=== PATIENT | male | born 1955 | race Caucasian/White ===

== ENCOUNTER 2018-08-26 14:12 | Emergency (ER) | payer OTHER ==
[2018-08-26 15:02] LABS: #Basophils 0.1 thou/uL (0.0-0.2); #Eosinphils 0.1 thou/uL (0.0-0.7); #Monocytes 0.9 thou/uL (0.11-0.59); #Neutrophils 8.8 thou/uL (1.40-6.50); %Basophils 0.9 % (0.0-1.0); %Eosinophils 0.5 % (0.0-10.0); %Lymphocytes 9.6 % (21.0-51.0); %Monocytes 8.2 % (0.0-10.0); %Neutrophils 80.9 % (42.0-75.0); Hemoglobin 13.6 g/dL (14.0-18.0); Mean Corpuscular HGB CONC 33.4 g/dL (32.0-36.0); Mean Corpuscular Hemoglobin 29.5 pg (27.0-31.0); Mean Corpuscular Volume 88.2 fL (78.0-98.0); Mean Platelet Volume 7.2 fL (7.4-10.4); Platelet Count 247 thou/uL (130-400); RBC Distribution Width 12.1 % (11.5-14.5); Red Blood Cell (RBC) Count 4.63 mill/uL (4.70-6.10); White Blood Cell (WBC) Count 10.9 thou/uL (4.8-10.8)
[2018-08-26] MEDS ORDERED: Ketorolac Tromethamine 30 MG/ML VIAL ONE (15:10)
[2018-08-26] MEDS ORDERED: Morphine 4 MG/ML VIAL ONE (15:10)
[2018-08-26] MEDS ORDERED: Ondansetron PF 4 MG/2 ML Vial ONE (15:10)
[2018-08-26 15:17] LABS: ALT (SGPT) 20 U/L (8-55); AST (SGOT) 22 U/L (5-34); Albumin 4.4 g/dL (3.4-4.8); Alkaline Phosphatase 51 U/L (40-150); Anion Gap 15 mmol/L (10-20); BUN (Urea Nitrogen) 22 mg/dL (8.4-25.7); Bilirubin, Total 0.4 mg/dL (0.2-1.2); Calc. Creatinine Clearance 0 mL/min (70-130); Calcium 9.2 mg/dL (7.8-10.44); Carbon Dioxide 25 mmol/L (23-31); Chloride 103 mmol/L (98-107); Estimated GFR-MDRD 50; Globulin 3.2 g/dL (2.4-3.5); Glucose 111 mg/dL (80-115); Lipase 19 U/L (8-78); Potassium 4.3 mmol/L (3.5-5.1); Protein, Total 7.6 g/dL (5.8-8.1); Sodium 139 mmol/L (136-145)
--- NOTE | 2018-08-26 15:24 | CT ---
Noncontrast enhanced images of abdomen and pelvis. HISTORY: Patient complaining of left-sided flank pain. Noncontrast enhanced CT images of the abdomen pelvis demonstrate the lung bases to be unremarkable. No evidence of free intraperitoneal air seen. The liver, spleen, gallbladder and pancreas are unremarkable. Adrenal glands unremarkable. The right kidneys unremarkable. The left kidney demonstrates a moderate degree of hydroureteronephrosis with surrounding fat strandin g. The left ureter is dilated along its course. There is an approximately 3.5 mm distal left ureterovesicular junction calculus. No dilated loops of bowel seen. There is a prosthetic penile implant with reservoir and tubing in place. IMPRESSION: obstructing distal left ureteral calculus with proximal left-sided hydronephrosis. Transcribed Date/Time: 08/26/2018 3:29 PM
[2018-08-26] MEDS ORDERED: Fentanyl 100 MCG/2 ML VIAL ONE (15:43)
[2018-08-26 16:18] LABS: Bilirubin Small (Negative); Blood, Urine Large (Negative); Glucose, Urine (Dipstick) Negative (Negative); Leukocyte Negative (Negative); Nitrite Negative (Negative); Protein, Urine (Dipstick) 30 mg/dL (Neg-Trace); Urobilinogen 0.2 mg/dL (0.2-1.0); pH, Urine 5.5 (5.0-9.0)
[2018-08-26 16:19] LABS: Clarity Hazy (Clear); Specific Gravity, Urine 1.022 (1.002-1.036)
[2018-08-26 16:24] LABS: Bacteria/HPF 1+ HPF (None Seen); Squamous Epithelial None Seen HPF (0-3); WBC/HPF None Seen HPF (0-3)
== END 2018-08-26 17:52 | disposition home or self-care (01) ==
LOC: SCSER 14:12
DX: N13.2 Hydronephrosis with renal and ureteral calculous obstruction (principal); I10 Essential (primary) hypertension; E78.5 Hyperlipidemia, unspecified
CPT/HCPCS: 74176; 80053; 81003; 81015; 83690; 85025; 96361; 96374; 96375; J1885; J2270; J2405; J3010